=== PATIENT | female | born 1995 | race Two or more races ===

== ENCOUNTER 2020-03-05 15:00 | Inpatient (IN) | payer OTHER ==
[~2020-03-05] VITALS: Ht 157.5 cm; Wt 86.6 kg
[2020-03-24] MEDS ORDERED: PRENATAL TABLE1 EAC1 PO (09:41)
== END 2020-03-26 12:30 | disposition home or self-care (01) | DRG 807 ==
LOC: OB/GYN 03-24 09:07 → LDR 03-24 09:07 → OB/GYN 03-24 15:34
PROVIDERS: ADMIT Specialist; ATTEND Specialist
PROC: 10E0XZZ Delivery of Products of Conception, External Approach (ICD-10-PCS; principal; 2020-03-24)
PROC: 4A1HXFZ Monitoring of Products of Conception, Cardiac Rhythm, External Approach (ICD-10-PCS; 2020-03-24)
DX: O80 Encounter for full-term uncomplicated delivery (principal); Z37.0 Single live birth; Z3A.39 39 weeks gestation of pregnancy; Z20.828 Contact with and (suspected) exposure to other viral communicable diseases